=== PATIENT | male | born 1955 | race Caucasian/White ===

== ENCOUNTER 2023-02-20 14:09 | Emergency (ER) | payer MEDICARE, OTHER, SELFPAY ==
[2023-02-20 14:10] VITALS: BP 169/90; PULSE 105; RESP 18; TEMP 35.9; O2SAT 96
--- NOTE | 2023-02-20 15:10 | EDS_ITS ---
HPI History of Present Illness Chief Complaint: Hypertension [facility] Medical History (Updated 02/20/23 @ 17:[address] Grover Truong, DO) Dizziness Dyspnea on exertion Heart murmur, systolic HTN (hypertension) Lightheadedness Uncontrolled hypertension Home Medications amlodipine 5 mg tablet (Norvasc) 5 mg PO DAILY #30 tabs 02/20/23 [Rx Last Taken Unknown] Allergy/AdvReac Type Severity Reaction Status Date / Time No Known Allergies Allergy Unverified 02/20/23 14:09 Social History (Updated 02/20/23 @ 13:09 by Berta Shaikh) Smoking Status: Never smoker alcohol intake: current alcohol intake frequency: a few times a week Alcohol type: beer EXAM Physical Exam Const Vital Signs: 02/20/23 14:10 02/20/23 15:51 02/20/23 17:06 Temperature 96.7 F L Temperature Source Temporal Pulse Rate 105 H 92 Respiratory Rate 18 Respiratory Pattern Normal Blood Pressure 169/90 H 190/94 H Blood Pressure Mean 116 126 Pulse Ox 96 Oxygen Delivery Method Room Air MDM MDM MDM Narrative Medical decision making narrative: HISTORY OF PRESENT ILLNESS: 67-year-old male here with concern for hypertension. He also notes dizziness fatigue x2 days. He states he has been feeling fatigued and intermittent dizziness for last 2 days. Denies dizziness now. Denies any head trauma. Denies dizziness being exacerbated by head movement. Denies any focal numbness weakness loss sensation. Denies any slurred speech. Denies any visual changes. Denies any personal history of hyperlipidemia, diabetes, aneurysms. Denies any recent illnesses, cough fever or chills. Denies any abdominal pain. Denies any chest pain or shortness of breath. Denies any lower extremity edema. REVIEW OF SYSTEMS: Pertinent positives: Dizziness, fatigue Pertinent negatives: Syncope, focal weakness PHYSICAL EXAM: Nursing triage notes reviewed, Vital signs reviewed Constitutional: please see mdm HENT: MMM Eyes: Pupils equal round and reactive to light, Extraocular muscles intact Neck: No stridor, no JVD, full neck ROM Lungs: Clear to auscultation, No wheezing or rales. No increased work of breathing, no conversational dyspnea, no accessory muscle use, no nasal flaring. No respiratory distress noted Heart: Regular rate and rhythm, No murmurs, No rubs and No gallops, 2+ distal pulses (radial, femoral, posterior tibial) in all extremities Abdomen: Soft, there is no tenderness, rigidity, rebound or guarding, no obvious peritoneal signs, no palpable pulsatile abdominal masses, no auscultated abdominal bruit : No CVAT Extremities: No edema Neuro: Alert and oriented x3, neuro exam at baseline, cranial nerves II through XII are intact. No pain with extraocular muscle movement. There is negative test of skew. Normal speech. 5 of 5 strength in upper and lower extremities in flexion extension. Intact sensation to light touch in upper and lower extremity dermatomes. No truncal or extremity ataxia. No dysdiadochokinesia. Normal gait. 2+ reflexes. No meningeal signs. Negative Babinski. NIH of 0 Skin: No rash or lesions noted MEDICAL DECISION MAKING: Chief Complaint: High blood pressure External records reviewed: No Recent ED visits or hospitalizations noted MDM Narrative: Patient was initially hypertensive, tachycardic otherwise hemodynamically stable, afebrile nontoxic-appearing. No focal cardiopulmonary abnormalities. No focal neurologic deficits. NIH stroke scale of 0. I considered posterior circulation CVA however patient had no ataxia, extremity ataxia or truncal ataxia, normal gait, NIH of 0. Of low suspicion for posterior circulation a and counterproductive CVA at this time. I considered obtaining a CT scan of the brain however thought this was unnecessary, counterproductive and likely confer more risk to the patient than missed diagnosis. I considered the following differential diagnosis: Anemia, electrolyte normalities, dehydration, arrhythmia, myocardial ischemia, heart failure, COVID, flu I obtained a broad lab and imaging work-up to further elucidate the etiology the patient complaints. I give the patient 1 L normal saline for fluid resuscitation. EKG without arrhythmia or STEMI. Troponin was negative. No evidence of anemia or significant electrolyte abnormalities. No clear etiology could be identified to explain the patient's symptoms. This likely multifactorial including uncontrolled hypertension, undiagnosed chronic medical conditions as well as advanced age. I instructed the patient follow-up with his primary care physician. I instructed him to start taking Norvasc for blood pressure control. I instructed him to eat a healthier diet and start exercising. Patient agreed with plan expressed understanding and said he felt much better after 1 L of fluid. Patient is appropriate for discharge home. Factors affecting care: Hypertension Social determinants of health: None History obtained from others: The patient's Shared decision making: I will have a discussion with the patient and or visitors regarding risk/benefits of further testing or admission. They will be made aware of of the risk/benefits inherent in this decision they will be given the opportunity to voice understanding. Consults: none Lab Data Attestation: I reviewed the patient's lab results. Lab results narrative: CBC without leukocytosis, severe anemia, no thrombocytopenia. BMP without evidence of significant electrolyte abnormalities, no anion gap, no acute kidney injury. Troponin is negative, no evidence of myocardial ischemia BNP within normal limits EKG without evidence of arrhythmia or STEMI Labs: Laboratory Results - last 24 hr 02/20/23 02/20/23 02/20/23 15:45 15:45 15:45 WBC 9.0 RBC 5.01 Hgb 16.4 Hct 49.0 MCV 97.8 H MCH 32.7 H MCHC 33.5 RDW Std Deviation 46.3 H RDW Coeff of Chato 13.0 Plt Count 187 MPV 10.8 Immature Gran % (Auto) 0.700 Neut % (Auto) 78.9 H Lymph % (Auto) 10.6 L Beauregard % (Auto) 9.3 Eos % (Auto) 0.1 Baso % (Auto) 0.4 Absolute Neuts (auto) 7.1 Absolute Lymphs (auto) 0.95 Nucleated RBC % 0 Sodium 137 Potassium 3.9 Chloride 103 Carbon Dioxide 27.0 Anion Gap 7 BUN 18 Creatinine 1.28 Estim Creat Clear Calc 55.66 Est GFR (MDRD) Af Amer 72 Est GFR (MDRD) Non-Af 60 BUN/Creatinine Ratio 14.1 Glucose 142 H Calcium 9.4 Troponin I High Sens 18 B-Natriuretic Peptide 65.4 Radiography Chest X-Ray - ED: Read by ED Physician Diagnostic Testing: Clinical Impression(s) from Imaging Studies Chest X-Ray 02/20/23 16:13 IMPRESSION: No acute cardiopulmonary disease. COPD changes. Electronically Signed: Braulio Ramsey MD at 16:33 EDT , I have personally reviewed the patient's chest x-ray. Chest x-ray is unremarkable for pulmonary edema, pneumothorax, pneumonia or focal cardi opulmonary abnormality. Discharge Plan Triage Chief Complaint: Hypertension ED Provider: Grover Truong Dx/Rx/DC Orders Clinical Impression: Uncontrolled hypertension Instructions: ED High Blood Pressure Hypertension Prescriptions: New amlodipine [Norvasc] 5 mg tablet 5 mg PO DAILY Qty: 30 0RF Primary Care Provider: Care Physician,No Primary Referrals: NOT,DEFINED [Non-Staff] - Activity Restrictions/Additional Instructions: Thank you for trusting us with your care today! Please take Tylenol (2 pills, 650 mg), ibuprofen (2 pills, 400 mg) every 6 hours as needed for pain and fever control. Please return to the emergency department if your symptoms change or worsen. Please start taking Norvasc 5 mg daily to control your blood pressure. Please follow your primary care physician for further outpatient blood pressure management. Please follow with your primary care physician for further outpatient evaluation and management. Disposition Disposition: Home, Self Care Discharge Date/Time: 02/20/23 17:37
--- NOTE | 2023-02-20 15:29 | EKG12_ITS ---
Test Reason : HYPERTENSION Blood Pressure : / mmHG Vent. Rate : 090 BPM Atrial Rate : 090 BPM P-R Int : 158 ms QRS Dur : 090 ms QT Int : 362 ms P-R-T Axes : 073 001 159 degrees QTc Int : 442 ms Normal sinus rhythm Possible Left atrial enlargement ST & T wave abnormality, consider inferolateral ischemia Abnormal ECG Confirmed by CRISTAL HOWE, AMNA ([id number]), story editor NAVEEN COSTA ([id number]) on 02/21/2023 8:56:32 AM Referred By: RAVINDER Confirmed By:AMNA BEE MD
[2023-02-20 15:41] VITALS: BMI 38.3
[2023-02-20] MEDS: 0.9% Normal Saline 1,000 ML 999 ML IV (15:46)
[2023-02-20 15:59] LABS: Absolute Lymphocyte Count 0.95 X10^3/uL (0.83-4.51); Absolute Neutrophil Count 7.1 X10^3/uL (2.0-7.7); Basophil# 0.04 X10^3/uL; Basophil% 0.4 % (0-1); Eosinophil# 0.01 X10^3/uL; Eosinophils% 0.1 % (0-5); Hemoglobin 16.4 g/dL (13.0-16.5); Lymphocyte # 0.95 X10^3/ul (0.83-4.51); Lymphocyte % 10.6 % (19-41); Mean Corp Hgb Conc 33.5 g/dL (32-36); Mean Corpuscular Hgb 32.7 pg (27.0-32.0); Mean Corpuscular Volume 97.8 fL (80-94); Mean Platelet Vol. 10.8 fl (6.2-12.0); Monocyte# 0.84 X10^3/uL; Monocyte% 9.3 % (0-10); NRBC Flagged by Analyzer 0 % (0-5); Neutrophil # 7.09 X10^3/uL (2.7-7.7); Neutrophil % 78.9 % (47-70); Platelet Count 187 K/mm3 (150-450); RBC Distribution Width SD 46.3 fl (35.1-43.9); Red Blood Count 5.01 M/mm3 (4.6-6.2)
--- NOTE | 2023-02-20 16:13 | RAD_ITS ---
INDICATION: Fatigue. EXAMINATION/TECHNIQUE: X-RAY - XR Chest 2 Views COMPARISON: None. FINDINGS: LINES/DEVICES: None. LUNGS: Flattening of the hemidiaphragms on the lateral view, mild elevation of the left hemidiaphragm. Mild interstitial coarsening. No focal consolidation. No pleural effusion. No pneumothorax. MEDIASTINUM AND CARDIOVASCULAR STRUCTURES: Cardiac silhouette not enlarged. Aortic arch calcification. Pulmonary vascularity within normal limits. BONES AND SOFT TISSUES: Degenerative changes without acute osseous injury. RAD/Chest PA and Lateral IMPRESSION: No acute cardiopulmonary disease. COPD changes. Electronically Signed: Braulio Ramsey MD at 16:33 EDT ,
[2023-02-20 16:15] LABS: Anion Gap 7 (5-15); BUN 18 mg/dL (7-18); BUN/Creat Ratio 14.1 RATIO (10-20); Calcium,Total 9.4 mg/dL (8.5-10.1); Chloride 103 mmol/L (98-107); Creatinine, Serum 1.28 mg/dL (0.70-1.30); EST Glomerular Filtration Rate 60 mL/min (>60); Est Glom Filt Rate - Afr Amer 72 mL/min (>60); Estimated Creatinine Clearance 55.66 ml/min; Glucose 142 mg/dL (74-106); Potassium 3.9 mmol/L (3.5-5.1); Sodium Level 137 mmol/L (136-145); Troponin-I HS 18 pg/mL (3.0-78.0)
[2023-02-20 16:37] LABS: BNP,B-Type NATRIURETIC PEPTIDE 65.4 pg/mL (0-100)
[2023-02-20 17:06] VITALS: BP 190/94; PULSE 92
[2023-02-20] MEDS: amLODIPine 5 MG Tablet PO (17:29)
== END 2023-02-20 17:37 | disposition home or self-care (01) ==
PROVIDERS: Emergency Provider Emergency Medicine; Visit Provider Emergency Medicine
DX: I10 Essential (primary) hypertension (principal); Z79.899 Other long term (current) drug therapy
CPT/HCPCS: 71046; 80048; 83880; 84484; 85025; 87428; 93005; 96360; 96361; 99283

== ENCOUNTER → 2023-03-18 | Outpatient (CLI) | payer MEDICARE, OTHER, SELFPAY | END | disposition home or self-care (01) | LOC: SL 13:16 | PROVIDERS: PCP Internal Medicine; Referring Provider Internal Medicine; Visit Provider Internal Medicine | DX: G47.10 Hypersomnia, unspecified (principal) | CPT/HCPCS: 95806 ==

== ENCOUNTER → 2023-03-21 | Outpatient (CLI) | payer MEDICARE, OTHER, SELFPAY ==
--- NOTE | 2023-03-21 08:55 | AAAS_ITS ---
Reason For Study: Screening Aorta Measurements Aorta Doppler Measurements Proximal aorta measures1.32 x 1.36cm. in cross- Peak systolic flow velocities within the proximal sectional axis. aorta measure 164.4 cm/sec. Proximal aorta measures1.34cm. in longitudinal Peak systolic flow velocities within the mid aorta axis. measure 166.6 cm/sec. Mid aorta measures1.52 x 1.57cm. in cross- Peak systolic flow velocities within the distal sectional axis. aorta measure 161.2 cm/sec. Mid aorta measures1.55cm. in longitudinal axis. Distal aorta measures1.31 x 1.21cm. in cross- sectional axis. Distal aorta measures1.27cm. in longitudinal axis. Left Iliac Artery Left iliac artery measures 0.85 x 0.83 cm. in the cross-sectional axis. Left iliac artery measures 0.87 cm. in the longitudinal axis. Peak systolic velocity in the left iliac artery measures 122.7 cm/sec. Right Iliac Artery Right iliac artery measures 0.78 x 0.78 cm. in the cross-sectional axis. Right iliac artery measures 0.81 cm. in the longitudinal axis. Peak systolic velocity in the right iliac artery measures 98.6 cm/sec. Procedure Aorta IVC Iliac vasculature or bypass grafts [id number]. Exam performed in department. VL/AAA Screening Interpretation Summary Aorta patent, normal caliber Bilateral iliac arteries patent, normal caliber Ordering Physician: Neetu De Anda Referring Physician: Neetu De Anda Performed By: Natalia Delgadillo RVT
--- NOTE | 2023-03-21 08:55 | STE_ITS ---
Reason For Study: CARDIAC MURMUR Stress Results Protocol: Donnie Protocol Maximum Predicted HR: 154 bpm Target HR: 131 bpm % Maximum Predicted HR: 85 % DurationHeart Rate Stage (mm:ss) (bpm) BP Comment BASELINE 86 160/94 STAGE 1 3:00 111 190/100 STAGE 2 3:00 122 200/98 SOB NOTED STAGE 3 0:30 131 / INCREASED SOB, LEG FATIGUE, NO CHEST PAIN RECOVERY 94 170/90 Stress Duration: 6:30 mm:ss Maximum Stress HR: 131 bpm Baseline Echocardiogram Findings The estimated ejection fraction is 65 %. Post stress EF is 65%. Normal LV size. Moderate aortic stenosis. Stress Echo Wall motion Data Resting WM Intermediate WM Stress WM Resting Wall Motion Wall Motion Stress No regional wall motion Infero-Basal: Hypokinetic. abnormalities noted. EKG Data Normal sinus rhythm, nonspecific ST changes in the inferior and lateral leads. About [address] depressions in the inferior and lateral leads. Presence of baseline ST changes decreases the specificity of these findings. Ischemia cannot be excluded. Symptoms with Stress The patient experinced No chest pain . MMode/2D Measurements & Calculations LVOT diam: 2.0 cm LVOT area: 3.3 cm2 Doppler Measurements & Calculations Ao V2 max: 368.9 cm/sec LV V1 max: 111.2 cm/sec SV(LVOT): 78.6 ml Ao max P.4 mmHg LV V1 max P.9 mmHg Ao V2 mean: 273.8 cm/sec LV V1 mean P.6 mmHg Ao mean P.9 mmHg LV V1 mean: 76.0 cm/sec Ao V2 VTI: 78.2 cm LV V1 VTI: 24.0 cm AV (velocity ratio): 0.31 NHUNG(I,D): 1.0 cm2 NHUNG(V,D): 0.99 cm2 TR max samantha: 280.3 cm/sec TR max P.4 mmHg ECHO/Stress Test Echo w/o Contrast Interpretation Summary The estimated ejection fraction is 65 %. Moderate aortic stenosis. Stress echo is negative for exercise-induced chest pain Stress echo is positive for exercise-induced EKG changes of ischemia and wall m otion abnormality suggestive of ischemia involving the inferobasal wall. Ordering Physician: Neetu De Anda Referring Physician: Neetu De Anda Performed By: Jennifer Govea, LORIN, RVT
== END | disposition home or self-care (01) ==
LOC: CVS 08:54
PROVIDERS: PCP Internal Medicine; Referring Provider Internal Medicine; Visit Provider Internal Medicine
DX: Z13.6 Encounter for screening for cardiovascular disorders (principal); R01.1 Cardiac murmur, unspecified; R94.31 Abnormal electrocardiogram [ECG] [EKG]
CPT/HCPCS: 76706; 93017; 93350

== ENCOUNTER → 2023-03-26 | Outpatient (CLI) | payer MEDICARE, OTHER, SELFPAY ==
[2023-03-26 11:19] LABS: Absolute Lymphocyte Count 0.67 X10^3/uL (0.83-4.51); Absolute Neutrophil Count 5.5 X10^3/uL (2.0-7.7); Basophil# 0.04 X10^3/uL; Basophil% 0.6 % (0-1); Eosinophil# 0.08 X10^3/uL; Eosinophils% 1.1 % (0-5); Hematocrit 48.4 % (40-54); Hemoglobin 16.5 g/dL (13.0-16.5); Lymphocyte # 0.67 X10^3/ul (0.83-4.51); Lymphocyte % 9.5 % (19-41); Mean Corp Hgb Conc 34.1 g/dL (32-36); Mean Corpuscular Hgb 32.7 pg (27.0-32.0); Mean Corpuscular Volume 95.8 fL (80-94); Mean Platelet Vol. 10.6 fl (6.2-12.0); Monocyte# 0.64 X10^3/uL; Monocyte% 9.1 % (0-10); NRBC Flagged by Analyzer 0 % (0-5); Neutrophil # 5.54 X10^3/uL (2.7-7.7); Platelet Count 183 K/mm3 (150-450); RBC Distribution Width CV 12.6 % (11.6-14.6); RBC Distribution Width SD 44.1 fl (35.1-43.9); Red Blood Count 5.05 M/mm3 (4.6-6.2)
[2023-03-26 11:43] LABS: Anion Gap 4 (5-15); BUN 14 mg/dL (7-18); BUN/Creat Ratio 12.5 RATIO (10-20); Calcium,Total 8.9 mg/dL (8.5-10.1); Chloride 108 mmol/L (98-107); Creatinine, Serum 1.12 mg/dL (0.70-1.30); EST Glomerular Filtration Rate 70 mL/min (>60); Est Glom Filt Rate - Afr Amer 84 mL/min (>60); Glucose 142 mg/dL (74-106); Potassium 4.3 mmol/L (3.5-5.1); Sodium Level 138 mmol/L (136-145)
[2023-03-26 12:05] LABS: Cholesterol 193 mg/dL (200); High Density Lipoprotein 40 mg/dL; Triglycerides 208 mg/dL; Very Low Density Lipoprotein 42 mg/dL (5-40)
== END | disposition home or self-care (01) ==
LOC: LAB 10:49
PROVIDERS: PCP Internal Medicine; Referring Provider Internal Medicine Cardiovascular Disease; Visit Provider Internal Medicine Cardiovascular Disease
DX: I10 Essential (primary) hypertension (principal); R73.09 Other abnormal glucose; R94.39 Abnormal result of other cardiovascular function study; E55.9 Vitamin D deficiency, unspecified
CPT/HCPCS: 36415; 80048; 80061; 82306; 83036; 85025

== ENCOUNTER 2023-04-11 07:23 | Day surgery (SDC) | payer MEDICARE, OTHER, SELFPAY ==
[2023-04-10 08:25] VITALS: BMI 38.7
--- NOTE | 2023-04-11 09:13 | CL.D_ITS ---
Patient Name: KATE MENDES Study Date: 04/11/2023 Performing: Tony Ferguson MD Ht: 68 inches 172.72 cm : 1955 Wt: 255.01 lbs 115.67 kg Age: 68 Gender: male BSA: 2.27 PROCEDURE(S) PERFORMED [id number])LHC/COR/LV CLINICAL PROFILE AND INDICATIONS Indications: Valvular Disease Heart Failure: None Stress/Imaging Stress/Image Study Performed: No CAD Presentations: Other: SOB CONCLUSIONS Non obstructive coronary arteries Aortic Valve Stenosis- Moderate RECOMMENDATIONS Medical therapy DESCRIPTION OF PROCEDURE The patient arrived to the procedure lab. The risks and benefits of the procedure as well as a full description of our services here and current unavailability of surgical backup were fully explained to the patient and/or their significant other prior to the catheterization. The Timeout was completed, verifying the correct patient and procedure. The patient's procedural site was prepped and draped in the usual fashion. Local anesthetic was given subcutaneously to right radial region with Lidocaine 2%. Using a modified Seldinger technique, arterial access was obtained via the right radial artery, a 6Fr sheath was inserted. Left Coronary Artery selective angiography was performed in multiple views using a 5 Fr. 4.0 Holland catheter. Right Coronary Artery selective angiography was then performed in multiple views using a 5 Fr. 4.0 Holland catheter. Left Ventriculography was performed in JUARES projection using a 5 Fr. Pigtail catheter. LV to AO pullback pressures were then recorded.The arterial sheath was pulled and a TR Band was applied for hemostasis 8cc of air CORONARY ANGIOGRAPHY DOMINANCE: Left Dominant LEFT HEART ASSESSMENT Left Ventricular Ejection Fraction: by LV Gram 70 % Normal LV wall motion Normal Left Ventricular systolic function Peak to peak aortic valve gradient approximately 50 mmHg. LEFT MAIN: Angiographically normal LEFT ANTERIOR DESCENDING ARTERY: Mild luminal irregularities CIRCUMFLEX ARTERY: Mild luminal irregularities RAMUS: Mild luminal irregularities RIGHT CORONARY ARTERY: No significant disease noted VALVE FINDINGS: Aortic Valve Calcification - moderate Aortic Valve Stenosis - moderate COMPLICATIONS No Complications PROCEDURE MEDICATIONS Versed 1 mg IV Fentanyl 50 mcg IV Versed 1 mg IV Oxygen: 2 L/min via nasal cannula Heparin given IA 04/11/2023 08:35:48 Verapamil 2.5mg, Ntg 100mcgs, 3000 units of Heparin given IA 04/11/2023 08:35:48 SUMMARY OF HEMODYNAMIC DATA Time AIR REST ECG 07:50:19 Art 123/59 (80) 08:44:14 AO 128/33 (82) SA 08:50:57 LV 185/-4, 5 08:56:45 LV 184/-2, 4 08:56:54 LV 172/1, 11 08:57:41 LVp 175/0, 12 08:58:12 AOp 125/63 (90) 08:58:19 AIR REST 09:11:58 Signed By Tony Ferguson MD On 04/11/2023 09:13:11 Tony Ferguson MD
== END 2023-04-11 10:20 | disposition home or self-care (01) ==
PROVIDERS: PCP Internal Medicine; Referring Provider Internal Medicine Cardiovascular Disease; Visit Provider Internal Medicine Cardiovascular Disease
DX: I35.0 Nonrheumatic aortic (valve) stenosis (principal); Z87.891 Personal history of nicotine dependence; Z79.82 Long term (current) use of aspirin; Z79.899 Other long term (current) drug therapy; I10 Essential (primary) hypertension
CPT/HCPCS: 93458; 99152; 99153; J7040; Q9967; C1769; C1894

== ENCOUNTER → 2023-06-12 | Outpatient (CLI) | payer MEDICARE, OTHER, SELFPAY ==
[2023-06-12 15:53] LABS: ALB/GLOB Ratio 1.1 RATIO (0.9-2.4); AST(SGOT) 33 U/L (15-37); Alanine Aminotransfer ALT/SGPT 48 U/L (16-61); Albumin, Serum 3.8 g/dL (3.2-5.0); Alkaline Phosphatase 104 U/L (45-117); Anion Gap 5 (5-15); BUN 14 mg/dL (7-18); BUN/Creat Ratio 12.1 RATIO (10-20); Calcium,Total 8.8 mg/dL (8.5-10.1); Chloride 107 mmol/L (98-107); Cholesterol 117 mg/dL (200); Creatinine, Serum 1.16 mg/dL (0.70-1.30); EST Glomerular Filtration Rate 67 mL/min (>60); Est Glom Filt Rate - Afr Amer 81 mL/min (>60); Globulin 3.4 g/dL (2.2-4.2); Glucose 130 mg/dL (74-106); High Density Lipoprotein 39 mg/dL; Potassium 4.2 mmol/L (3.5-5.1); Protein, Total 7.2 g/dL (6.4-8.2); Sodium Level 138 mmol/L (136-145); Triglycerides 241 mg/dL; Very Low Density Lipoprotein 48 mg/dL (5-40)
== END | disposition home or self-care (01) ==
LOC: BIMLAB 13:12
PROVIDERS: PCP Internal Medicine; Visit Provider Internal Medicine
DX: I10 Essential (primary) hypertension (principal)
CPT/HCPCS: 36415; 80053; 80061

== ENCOUNTER → 2024-03-04 | Outpatient (CLI) | payer MEDICARE, OTHER, SELFPAY ==
[2024-03-04 15:36] LABS: Absolute Lymphocyte Count 0.91 X10^3/uL (0.83-4.51); Absolute Neutrophil Count 4.5 X10^3/uL (2.0-7.7); Basophil# 0.05 X10^3/uL; Basophil% 0.8 % (0-1); Eosinophil# 0.08 X10^3/uL; Eosinophils% 1.3 % (0-5); Hematocrit 43.8 % (40-54); Hemoglobin 14.9 g/dL (13.0-16.5); Lymphocyte # 0.91 X10^3/ul (0.83-4.51); Lymphocyte % 14.7 % (19-41); Mean Corpuscular Hgb 32.2 pg (27.0-32.0); Mean Corpuscular Volume 94.6 fL (80-94); Mean Platelet Vol. 10.9 fl (6.2-12.0); Monocyte# 0.62 X10^3/uL; NRBC Flagged by Analyzer 0 % (0-5); Neutrophil # 4.49 X10^3/uL (2.7-7.7); Neutrophil % 72.7 % (47-70); Platelet Count 188 K/mm3 (150-450); RBC Distribution Width CV 12.7 % (11.6-14.6); RBC Distribution Width SD 43.8 fl (35.1-43.9); Red Blood Count 4.63 M/mm3 (4.6-6.2); White Blood Count 6.2 K/mm3 (4.4-11.0)
[2024-03-04 16:20] LABS: ALB/GLOB Ratio 1.1 RATIO (0.9-2.4); AST(SGOT) 48 U/L (15-37); Alanine Aminotransfer ALT/SGPT 55 U/L (16-61); Albumin, Serum 3.7 g/dL (3.2-5.0); Alkaline Phosphatase 88 U/L (45-117); Anion Gap 7 (5-15); BUN 17 mg/dL (7-18); BUN/Creat Ratio 14.5 RATIO (10-20); Bilirubin, Direct 0.19 mg/dL (0.00-0.30); Calcium,Total 8.8 mg/dL (8.5-10.1); Chloride 105 mmol/L (98-107); Cholesterol 106 mg/dL (200); Creatinine, Serum 1.17 mg/dL (0.70-1.30); EST Glomerular Filtration Rate 66 mL/min (>60); Est Glom Filt Rate - Afr Amer 80 mL/min (>60); Globulin 3.3 g/dL (2.2-4.2); Glucose 118 mg/dL (74-106); High Density Lipoprotein 40 mg/dL; PSA,Total- Diagnostic 0.48 ng/mL (0.0-4.0); Potassium 4.2 mmol/L (3.5-5.1); Sodium Level 136 mmol/L (136-145); Triglycerides 218 mg/dL; Very Low Density Lipoprotein 44 mg/dL (5-40)
== END | disposition home or self-care (01) ==
LOC: BIMLAB 13:53
PROVIDERS: PCP Internal Medicine; Visit Provider Internal Medicine
DX: I35.0 Nonrheumatic aortic (valve) stenosis (principal); E78.2 Mixed hyperlipidemia; R73.03 Prediabetes; I10 Essential (primary) hypertension; R35.0 Frequency of micturition
CPT/HCPCS: 36415; 80053; 80061; 82248; 83036; 84153; 85025

== ENCOUNTER → 2024-03-31 | Outpatient (CLI) | payer MEDICARE, OTHER, SELFPAY ==
--- NOTE | 2024-03-31 12:51 | ECHOD_ITS ---
Reason For Study: AORTIC VALVE STENOSIS Procedure This was a 2D Doppler, Color Flow transthoracic echocardiogram. Exam performed in department. Left Ventricle Normal LV size. Mild concentric left ventricular hypertrophy. Left ventricular systolic function is normal. Stage 1 diastolic dysfunction. No regional wall motion abnormalities noted. Right Ventricle Normal RV size. Normal systolic function. Atria Normal left atrium. Normal right atrium. Mitral Valve Normal mitral valve. Tricuspid Valve Normal tricuspid valve. Mild tricuspid valve insufficiency. Aortic Valve Trisinus/trileaflet aortic valve. Severe aortic stenosis. Peak aortic valve gradient 67 mmHg. Mean aortic valve gradient 41 mmHg. Pulmonic Valve Normal pulmonic valve. Great Vessels Normal aortic root. The pulmonary artery is normal size. Normal inferior vena cava. Pericardium/Pleural No pericardial effusion. MMode/2D Measurements & Calculations LVIDd: 4.3 cm IVSd: 1.4 cm LVOT diam: 2.0 cm LVIDs: 3.0 cm LVPWd: 1.4 cm LVOT area: 3.2 cm2 RVDd: 2.8 cm FS: 31.0 % Ao root diam: 2.7 cm LAV(MOD-bp): 86.3 ml LVAd ap4: 31.4 cm2 LAV(MOD-bp) Indexed: 39.2 ml/m2 LVLd ap4: 9.2 cm LAV(MOD-sp2): 83.4 ml EDV(MOD-sp4): 87.6 ml LAV(MOD-sp4): 83.8 ml EDV(sp4-el): 90.8 ml LVAs ap4: 14.8 cm2 LVLs ap4: 7.5 cm ESV(MOD-sp4): 26.9 ml ESV(sp4-el): 24.8 ml EF(MOD-sp4): 69.2 % EF(sp4-el): 72.7 % SV(MOD-sp4): 60.6 ml SV(sp4-el): 66.0 ml LA A4 area: 24.5 cm2 LA dimension(2D): 4.9 cm RA A4 area: 13.5 cm2 TAPSE: 2.3 cm Time Measurements MV dec time: 0.29 sec Doppler Measurements & Calculations MV E max vikas: 75.6 cm/sec Lat Peak E' Vikas: 5.0 cm/sec Med Peak E' Vikas: 5.4 cm/sec MV A max vikas: 110.9 cm/sec E/E' lat: 15.2 E/E' med: 13.9 MV E/A: 0.68 MV V2 max: 112.5 cm/sec MV P1/2t max vikas: 82.4 cm/sec Ao V2 max: 406.2 cm/sec MV max P.1 mmHg MV P1/2t: 87.9 msec Ao max P.4 mmHg MV V2 mean: 61.1 cm/sec Ao V2 mean: 310.0 cm/sec MV mean P.7 mmHg MV dec slope: 274.4 cm/sec2 Ao mean P.7 mmHg MV V2 VTI: 27.5 cm MVA(P1/2t): 2.5 cm2 Ao V2 VTI: 96.8 cm AV (velocity ratio): 0.24 MVA(VTI): 2.7 cm2 NHUNG(I,D): 0.76 cm2 NHUNG(V,D): 0.74 cm2 LV V1 max: 93.9 cm/sec SV(LVOT): 73.4 ml PA V2 max: 88.3 cm/sec LV V1 max P.5 mmHg PA V2 mean: 64.2 cm/sec LV V1 mean P.9 mmHg LV V1 mean: 64.5 cm/sec LV V1 VTI: 23.0 cm TR max vikas: 191.8 cm/sec TR max P.7 mmHg ECHO/Echo Complete Interpretation Summary Normal LV size. Left ventricular systolic function is normal. No regional wall motion abnormalities noted. Mild concentric left ventricular hypertrophy. Stage 1 diastolic dysfunction. Peak aortic valve gradient 67 mmHg. Mean aortic valve gradient 41 mmHg. Severe aortic stenosis. Ordering Physician: Cirilo Montoya Referring Physician: Neetu Montero Performed By: Jennifer Govea, LORIN, RVT
== END | disposition home or self-care (01) ==
LOC: CVS 12:48
PROVIDERS: PCP Internal Medicine; Referring Provider Nurse Practitioner Family; Visit Provider Nurse Practitioner Family
DX: I35.0 Nonrheumatic aortic (valve) stenosis (principal)
CPT/HCPCS: 93306

== ENCOUNTER 2024-04-13 06:46 | Day surgery (SDC) | payer MEDICARE, OTHER, SELFPAY ==
--- NOTE | 2024-04-06 13:03 | RAD_ITS ---
STUDY: X-RAY CHEST REASON FOR EXAM: Male, 69 years old. Preoperative evaluation. TECHNIQUE: Frontal and lateral views of the chest on 3 images. COMPARISON: February 20, 2023 FINDINGS: The lungs are clear and expanded. There is no demonstrated pleural abnormality. Stable borderline cardiomegaly. Normal mediastinum and nguyen. Normal visualized pulmonary arteries. Aortic tortuosity with calcification unchanged. Normal visualized thoracic spine. Normal visualized ribs, clavicles, and shoulders. No abnormality of the visualized soft tissue structures of the upper abdomen. RAD/Chest PA and Lateral IMPRESSION: Stable chest with no acute or active cardiopulmonary disease. Electronically Signed: Cooper Novoa MD at 13:33 EDT ,
[2024-04-06 13:06] LABS: Absolute Neutrophil Count 5.2 X10^3/uL (2.0-7.7); Basophil# 0.06 X10^3/uL; Basophil% 0.9 % (0-1); Eosinophil# 0.15 X10^3/uL; Eosinophils% 2.2 % (0-5); Hematocrit 45.9 % (40-54); Hemoglobin 15.5 g/dL (13.0-16.5); Lymphocyte % 11.6 % (19-41); Mean Corp Hgb Conc 33.8 g/dL (32-36); Mean Corpuscular Hgb 32.4 pg (27.0-32.0); Mean Platelet Vol. 9.9 fl (6.2-12.0); Monocyte# 0.72 X10^3/uL; Monocyte% 10.4 % (0-10); NRBC Flagged by Analyzer 0 % (0-5); Neutrophil # 5.16 X10^3/uL (2.7-7.7); Neutrophil % 74.8 % (47-70); Platelet Count 174 K/mm3 (150-450); RBC Distribution Width CV 13.1 % (11.6-14.6); RBC Distribution Width SD 46.4 fl (35.1-43.9); Red Blood Count 4.78 M/mm3 (4.6-6.2); White Blood Count 6.9 K/mm3 (4.4-11.0)
[2024-04-06 13:28] LABS: Anion Gap 6 (5-15); BUN 13 mg/dL (7-18); BUN/Creat Ratio 11.5 RATIO (10-20); Calcium,Total 9.6 mg/dL (8.5-10.1); Chloride 105 mmol/L (98-107); Creatinine, Serum 1.13 mg/dL (0.70-1.30); EST Glomerular Filtration Rate 69 mL/min (>60); Est Glom Filt Rate - Afr Amer 83 mL/min (>60); Glucose 137 mg/dL (74-106); Potassium 3.9 mmol/L (3.5-5.1); Sodium Level 138 mmol/L (136-145)
--- NOTE | 2024-04-09 16:14 | PCM.HP.BLA ---
History and Physical Date of Admission: 04/13/24 Pleasant 69-year-old man with no previous cardiac history. He had not been seeing physicians for a while but apparently presented to the emergency room with some lightheadedness and shortness of breath. He was noted to be markedly hypertensive and was started on amlodipine and discharged home. He saw PCP in the office and a murmur was detected prompting further testing including a stress test and stress echocardiogram. He had complained of some shortness of breath with exertion but denied any chest pain he has had 1 episode of dizziness but no syncopal spells. On his stress echocardiogram he was noted to have [address] depression noted in the inferolateral leads after exercising for 6 minutes and 30 seconds and did have evidence of wall motion abnormality involving the inferior basal wall. No chest pain however was noted during the test. He was also noted to have moderate aortic stenosis. Since starting on the medication he has done well denying any symptomatology. He was referred here for further evaluation and management. He proceeded with a heart catheterization on 04/11/2023 that showed nonobstructive coronary artery disease and moderate aortic valve stenosis. Medical therapy was recommended. Repeat echocardiogram in March 2024 showed severe aortic valve stenosis with a mean aortic valve gradient of 41.7 mmHg. He denies chest, arm, jaw, or neck discomfort. He denies palpitations. He denies bilateral lower extremity edema. He denies claudication. He denies shortness of breath with activity, shortness of breath at rest, orthopnea, or PND. He denies chronic cough. He denies significant, sudden weight gain. He denies lightheadedness, dizziness, near-syncope, or syncope. He denies blood in urine, blood in stool, or epistaxis. He denies fever with chills. He denies myalgia. He denies fatigue. His exercise level has remained stable. Intake Vital Signs: See EMR Intake Visit Reasons: [facility] [employer] Required: No Accompanied by: Self Is patient in pain?: No Allergies No Known Allergies Allergy (Unverified 09/23/23 11:39) Medications See EMR [facility] Medical History Dizziness Dyspnea on exertion Heart murmur, systolic Lightheadedness Uncontrolled hypertension Surgical History History of open reduction and internal fixation (ORIF) procedure (~1967) Family History Mother Breast cancer Heart diseaseFather Heart disease Hypertension Social History household members: spouse current occupational status: employed current occupation: self employed, service [employer] Smoking Status: Former smoker quit date: 10/06/79 pack-years: 8 Electronic Cigarette Use: not used alcohol intake: current alcohol intake frequency: a few times a week Alcohol type: beer substance use type: does not use caffeine: Yes Type: coffee Number of servings: 1 what type of physical activity do you participate in: none do you feel safe at home: Yes ROS Const Const: Negative for fatigue or weakness ENT ENT: Negative for dizziness or balance problems Cardio Chest Pain: No Palpitations: No Edema: None Muscle aches with walking: None Resp Respiratory: Negative for SOB with activity, SOB at rest or SOB orthopnea\SOB lying down GI GI: Negative nausea, vomiting or heartburn : Negative for hematuria or frequent nighttime urination/ nocturia Musc Musc: Negative for muscle weakness or balance problems Skin Skin: Negative non-healing lesions or rash Neuro Neuro: Negative for dizziness, lightheadedness, near syncope, syncope or weakness Endo Endo: Negative for fatigue Allergy Allergy/Immunology: Negative for rash Cardiology Exam Const Appearance: cooperative, healthy appearing, comfortable and no acute distress Nutritional Appearance: well nourished and obese Orientation: alert, awake and oriented x3 Head Head: normal to inspection Ears: hearing grossly normal bilaterally Nose: external nose normal Face and Sinus: face symmetric Mouth: moist mucous membranes Eyes General: appearance normal, both eyes and all related structures Eyelids: eyelids normal EOM: EOM intact bilaterally Neck Neck: normal visual inspection and no JVD Carotids: normal carotid upstroke Chest Chest inspection: normal inspection of the chest, symmetric chest movement and normal respiratory effort; Negative cough Auscultation: Bilateral: Clear to Auscultation Cardio Rate: regular rate Rhythm: regular rhythm Heart sounds: S1 normal and S2 normal; Negative rub, gallop or murmur GI GI: normal to inspection and obese Neuro General: patient alert, patient awake, patient oriented x3 and CN's II-XI intact bilaterally Skin Skin: no rashes or lesions noted Extremities Pulses: Normal: Right Posterior Tibial Pulse, Left Posterior Tibial Pulse, Right Radial Pulse and Left Radial Pulse Lower Extremity Edema: None: Bilateral Psych Psychological: normal affect Supplemental Info Supplemental Information Echocardiogram from 03/31/2024: Interpretation Summary Normal LV size. Left ventricular systolic function is normal. No regional wall motion abnormalities noted. Mild concentric left ventricular hypertrophy. Stage 1 diastolic dysfunction. Peak aortic valve gradient 67 mmHg. Mean aortic valve gradient 41 mmHg. Severe aortic stenosis. STRESS ECHOCARDIOGRAM 03/21/23: Interpretation Summary The estimated ejection fraction is 65 %. Moderate aortic stenosis. ? Stress echo is negative for exercise-induced chest pain ? Stress echo is positive for exercise-induced EKG changes of ischemia and wall motion abnormality suggestive of ischemia involving the inferobasal wall. ABDOMINAL AORTA/IVC ULTRASOUND 03/21/23: INTERPRETATION SUMMARY Aorta patent,normal caliber Bilateral iliac arteries patent, normal caliber UNATTENDED HOME SLEEP APNEA TEST 03/18/23: Severe Obstructive Sleep Apnea Recommendations: A trial of automatic-adjusting CPAP is recommended. Alternatively,CPAP titration could be done, if clinically indicated. Assessment and Plan Assessment and Plan (1) Abnormal stress echocardiogram: Status: Chronic Plan: Stress echocardiogram with evidence of wall motion abnormality involving the inferior basal wall. He then proceeded with a heart catheterization on 04/11/2023 that showed nonobstructive coronary artery disease with moderate aortic valve stenosis. Medical therapy was recommended. We will continue to monitor. (2) Essential hypertension: Status: Chronic Plan: Patient's blood pressure is well-controlled. We will continue to monitor. We will not make any medication regimen changes. We will continue to avoid hypotension. (3) Aortic stenosis: Status: Chronic Qualifiers: Cardiac valve disease etiology: nonrheumatic Qualified Code(s): I35.0 - Nonrheumatic aortic (valve) stenosis Plan: Stress echocardiogram on 03/21/2023 showed moderate aortic valve stenosis with a peak aortic valve gradient 54.4 mmHg, mean aortic valve gradient of 32.9 mmHg, and aortic valve area 1/0.99 cm?. He underwent resting echocardiogram on 03/31/2024 that showed an ejection fraction normal, peak aortic valve gradient of 67 mmHg, mean aortic valve gradient 41 mmHg, and aortic valve area 0.76/0.74 cm?. On account of severe aortic valve stenosis, he will proceed with heart catheterization to define coronary anatomy. He will then be transferred to valve center for ongoing valve care.
[2024-04-13 07:14] VITALS: BMI 35.4
--- NOTE | 2024-04-13 08:34 | CL.D_ITS ---
Patient Name: KATE MENDES Study Date: 04/13/2024 Performing: Tony Ferguson MD Ht: 68 inches 172.72 cm : 1955 Wt: 240 lbs 108.86 kg Age: 69 Gender: male BSA: 2.21 PROCEDURE(S) PERFORMED [id number]-(43913)LHC/COR/LV CLINICAL PROFILE AND INDICATIONS Indications: Valvular Disease Heart Failure: None Stress/Imaging Stress/Image Study Performed: No CAD Presentations: Symptom unlikely to be ischemic. CONCLUSIONS Non obstructive coronary arteries Aortic Valve Stenosis- Severe RECOMMENDATIONS Surgery consult for Valve Replacement surgery DESCRIPTION OF PROCEDURE The patient arrived to the procedure lab. The risks and benefits of the procedure as well as a full description of our services here and current unavailability of surgical backup were fully explained to the patient and/or their significant other prior to the catheterization. The Timeout was completed, verifying the correct patient and procedure. The patient's procedural site was prepped and draped in the usual fashion. Local anesthetic was given subcutaneously to right radial region with Lidocaine 2%. Using a modified Seldinger technique, arterial access was obtained via the right radial artery, a 6Fr sheath was inserted. Right Coronary Artery selective angiography was then performed in multiple views using a 5 Fr. 4.0 Agra catheter. Left Coronary Artery selective angiography was performed in multiple views using a 5 Fr. 4.0 Agra catheter. Left Ventriculography was performed in JUARES projection using a 5 Fr. Pigtail catheter.The arterial sheath was pulled and a TR Band was applied for hemostasis 10 ml of air CORONARY ANGIOGRAPHY DOMINANCE: Left Dominant LEFT HEART ASSESSMENT Left Ventricular Ejection Fraction: by LV Gram 65 % Normal LV wall motion Normal Left Ventricular systolic function Normal Left Ventricular systolic function LEFT MAIN: Angiographically normal, Angiographically normal LEFT ANTERIOR DESCENDING ARTERY: Angiographically normal CIRCUMFLEX ARTERY: Angiographically normal RIGHT CORONARY ARTERY: Angiographically normal VALVE FINDINGS: Aortic Valve Calcification - moderate Aortic Valve Stenosis - severe COMPLICATIONS No Complications PROCEDURE MEDICATIONS Fentanyl 50 mcg IV Versed 1 mg IV Versed 1 mg IV Versed 1 mg IV Oxygen: 2 L/min via nasal cannula Heparin given IA 04/13/2024 08:08:31 Verapamil 2.5mg, Ntg 100mcgs, 3000 units of Heparin given IA 04/13/2024 08:08:31 SUMMARY OF HEMODYNAMIC DATA Time AIR REST ECG 07:13:44 AO 111/82 (97) SA 08:12:42 AO 102/76 (89) 08:12:52 LV 180/10, 15 08:19:03 LV 182/10, 14 08:19:10 LV 154/23, 25 08:19:40 LV 184/10, 14 08:19:54 LV 189/12, 17 08:20:00 LVp 184/12, 17 08:20:05 AOp 120/68 (90) 08:20:10 AO 126/72 (96) 08:20:32 08:32:31 Signed By Tony Ferguson MD On 04/13/2024 08:33:56 Tony Ferguson MD
== END 2024-04-13 10:10 | disposition home or self-care (01) ==
PROVIDERS: Nurse Practitioner Family; PCP Internal Medicine; Referring Provider Internal Medicine Cardiovascular Disease; Visit Provider Internal Medicine Cardiovascular Disease
DX: I35.0 Nonrheumatic aortic (valve) stenosis (principal); I10 Essential (primary) hypertension; E66.9 Obesity, unspecified; Z79.899 Other long term (current) drug therapy; Z79.82 Long term (current) use of aspirin; Z87.891 Personal history of nicotine dependence
CPT/HCPCS: 36415; 71046; 80048; 85025; 93458; 99152; 99153; J7040; Q9967; C1769; C1894

== ENCOUNTER → 2025-05-11 | Outpatient (CLI) | payer MEDICARE, OTHER, SELFPAY ==
--- NOTE | 2025-05-11 10:49 | CDU_ITS ---
Reason For Study Reason For Study: Carotid artery disease Rt. Velocities/BP Lt. Velocities/BP Prox CCA 135.7/22.5 cm/sec. Prox CCA 143/24.3 cm/sec. Mid CCA 117.4/18.8 cm/sec. Mid CCA 108.3/18.8 cm/sec. Dist CCA 121.1/18.8 cm/sec. Dist CCA 124.7/26.1 cm/sec. Prox ICA 93.8/14.6 cm/sec. Bulb, 246.6/33.3 cm/sec. Mid ICA 71.8/19 cm/sec. Prox ICA 80.2/12.6 cm/sec. Dist ICA 70.7/20.1 cm/sec. Mid ICA 76.5/22.5 cm/sec. Rt. ICA/CCA = 0.80. Dist ICA 63/18.8 cm/sec. Prox ECA 130.2/13.3 cm/sec. Lt. ICA/CCA = 2.28. Rt. Vert. 35.1/9.5 cm/sec. Prox ECA 155.8/15.2 cm/sec. Lt. Vert. 37.1/10.7 cm/sec. Right Extracranial There is heterogeneous, irregular atherosclerotic plaque noted in the right common carotid artery. There is heterogeneous, irregular atherosclerotic plaque noted in the right internal carotid artery. There is heterogeneous, irregular atherosclerotic plaque noted in the right external carotid artery. Antegrade flow is noted in the right vertebral artery. Left Extracranial There is heterogeneous, irregular atherosclerotic plaque noted in the left common carotid artery. There is heterogeneous, irregular atherosclerotic plaque noted in the left internal carotid artery. There is heterogeneous, irregular atherosclerotic plaque noted in the left external carotid artery. Antegrade flow is noted in the left vertebral artery. There is heterogeneous, irregular atherosclerotic plaque noted in the left bulb. Procedure Carotid Duplex [id number]. This is a Carotid Duplex examination using B-mode, color flow and specral Doppler. Exam performed in department. VL/Carotid Duplex Ultrasound Interpretation Summary Mild (<50%) stenosis right extracranial internal carotid. Severe (>70%) stenosis left extracranial internal carotid. Patent and antegrade vertebrals bilaterally. Ordering Physician: Cirilo Montoya Referring Physician: Neetu De Anda Performed By: Natalia Delgadillo RVT
== END | disposition home or self-care (01) ==
LOC: CVS 10:48
PROVIDERS: PCP Internal Medicine; Referring Provider Nurse Practitioner Family; Visit Provider Nurse Practitioner Family
DX: I65.23 Occlusion and stenosis of bilateral carotid arteries (principal); R53.83 Other fatigue; I25.10 Atherosclerotic heart disease of native coronary artery without angina pectoris; I25.2 Old myocardial infarction
CPT/HCPCS: 93880

== ENCOUNTER → 2025-08-18 | Outpatient (CLI) | payer MEDICARE, OTHER, SELFPAY ==
[2025-08-18 10:30] LABS: Hematocrit 45.5 % (40-54); Hemoglobin 15.7 g/dL (13.0-16.5); Immature Granulocytes Count 0.070 X10^3/uL (0.0-0.0); Mean Corp Hgb Conc 34.5 g/dL (32-36); Mean Corpuscular Volume 93.8 fL (80-94); Mean Platelet Vol. 10.1 fl (6.2-12.0); NRBC Flagged by Analyzer 0 % (0-5); Platelet Count 204 K/mm3 (150-450); RBC Distribution Width CV 12.9 % (11.6-14.6); RBC Distribution Width SD 44.0 fl (35.1-43.9); Red Blood Count 4.85 M/mm3 (4.6-6.2); White Blood Count 6.7 K/mm3 (4.4-11.0)
[2025-08-18 11:10] LABS: AST(SGOT) 53 U/L (<=37); Alanine Aminotransfer ALT/SGPT 60 U/L (<=46); Albumin, Serum 4.1 g/dL (3.4-4.8); Alkaline Phosphatase 108 U/L (40-129); Anion Gap 11 (5-15); BUN 17 mg/dL (4-19); BUN/Creat Ratio 16.8 RATIO (10-20); Calcium,Total 9.1 mg/dL (7.6-11.0); Carbon Dioxide 24.6 mmol/L (21.0-32.0); Chloride 102 mmol/L (98-108); Cholesterol 130 mg/dL (<=200); Globulin 2.7 g/dL (2.2-4.2); Glucose 155 mg/dL (70-99); Low Density Lipoprotein Calc. 39 mg/dL; PSA,Total - Annual Screen 0.52 ng/mL (0.02-4.00); Potassium 4.2 mmol/L (3.3-5.1); Triglycerides 443 mg/dL; Very Low Density Lipoprotein 89 mg/dL (5-40); cholesterol:hdl ratio screen 4.76
== END | disposition home or self-care (01) ==
PROVIDERS: PCP Internal Medicine; Referring Provider Internal Medicine; Visit Provider Internal Medicine
DX: Z12.5 Encounter for screening for malignant neoplasm of prostate (principal); I10 Essential (primary) hypertension; R73.03 Prediabetes; Z95.2 Presence of prosthetic heart valve; E78.2 Mixed hyperlipidemia; N52.9 Male erectile dysfunction, unspecified
CPT/HCPCS: 36415; 80053; 80061; 84153; 84402; 84443; 85025; G0103